=== PATIENT | female | born 1990 | race African-American/Black ===

== ENCOUNTER 2024-11-25 15:44 | Emergency (ER) | payer BC ==
[~2024-11-25] VITALS: Ht 172.7 cm; Wt 88.9 kg
[2024-11-25 15:54] VITALS: O2SAT 100
[2024-11-25 16:16] LABS: HEMATOCRIT. 39.1 % (36.0-48.0); MEAN CORPUSCULAR HEMOGLOBIN 30.5 pg (28.0-32.0); MEAN CORPUSCULAR HGB CONC 33.2 g/dL (31.0-37.0); MEAN PLATELET VOLUME 7.2 fl (7.4-10.4); PLATELET 391 x1000/uL (130-400); RED BLOOD CELL COUNT 4.25 mill/uL (4.2-5.4); RED CELL DISTRIBUTION WIDTH 13.7 % (11.6-14.6); WHITE BLOOD COUNT 8.9 x1000/uL (4.5-11.0)
[2024-11-25 16:22] LABS: HCG SCREEN NEGATIVE
[2024-11-25 16:23] LABS: CHLORIDE 109 mEq/L (98-107); POTASSIUM 3.7 mEq/L (3.5-5.1); SODIUM 141 mEq/L (136-145)
[2024-11-25 16:24] LABS: CALCIUM 9.3 mg/dL (8.7-10.4); CARBON DIOXIDE 24 mEq/L (21-32); DIFFERENTIAL COMMENT 1
[2024-11-25 16:29] LABS: CREATININE 0.9 mg/dL (0.6-1.0); GLUCOSE 94 mg/dL (70-105); UREA NITROGEN BLOOD 12 mg/dL (9-23)
[2024-11-25 16:43] LABS: PLATELET ESTIMATE NORMAL
[2024-11-25] MEDS ORDERED: DICYCLOMINE 10 MG/5 ML ORAL SYR PO STA (17:28)
[2024-11-25] MEDS: SODIUM CHLORIDE 0.9% 1,000 ML IV ONE (17:53)
[2024-11-25] MEDS: DICYCLOMINE HCL 10MG CAPSULE PO NR (17:53)
[2024-11-25] MEDS: ONDANSETRON HCL 4MG/2ML INJ IV STA (17:53)
[2024-11-25] MEDS: MAGNESIUM/ALUMINUM HYDROXIDE/SIMETHICONE 30ML UDC PO STA (17:53)
[2024-11-25] MEDS ORDERED: TOPUD MT (18:28)
[2024-11-25] MEDS ORDERED: ONDA4TAB50 PO (18:28)
[2024-11-25 19:19] VITALS: BP 118/74; PULSE 104; RESP 18; TEMP 36.8; O2SAT 100
== END 2024-11-25 19:20 | disposition home or self-care (01) ==
LOC: ER 15:44
DX: K52.9 Noninfective gastroenteritis and colitis, unspecified (principal)
CPT/HCPCS: 80048; 84703; 83690; 85025; 36415; 96374; 99283; J2405; J7030; Z7610